=== PATIENT | male | born 1980 | race Hispanic/Latino ===

== ENCOUNTER 2022-09-15 08:14 | Day surgery (SDC) | payer OTHER ==
[2022-09-14 13:01] VITALS: BMI 32.1
[~2022-09-15 08:14] MED LIST: EPINEPHrine 0.3 MG in Ophthalmic Irrigation Solution 500 ML IRR SCH; Midazolam HCl 2 mg/2 ml Vial ONE; fentaNYL 50 mcg/mL 1 mL Vial ONE
[2022-09-15] MEDS ORDERED: PHENYLephrine 2.5% Ophth Soln 15 ml Bottle ONE (08:37)
[2022-09-15] MEDS ORDERED: Cyclopentolate 0.5% Opth Drops 15 ML BOT ONE (08:37)
[2022-09-15] MEDS ORDERED: Lidocaine 4% PF 5 ML AMP ONE (10:00)
[2022-09-15] MEDS ORDERED: CEFAZOLIN 1 GM VIAL ONE (10:00)
[2022-09-15] MEDS ORDERED: Lidocaine 1% PF 5 ML VIAL ONE (10:00)
[2022-09-15] MEDS ORDERED: PROPOFOL 200 MG/20 ML VIAL ONE (10:00)
[2022-09-15] MEDS ORDERED: Maxitrol 0.1% Opth Oint 3.5 GM TUBE ONE (10:00)
[2022-09-15] MEDS ORDERED: Triamcinolone 40 MG/ML VIAL ONE (10:00)
[2022-09-15] MEDS ORDERED: Bupivacaine 0.75% 10 ML VIAL ONE (10:00)
== END 2022-09-15 12:00 | disposition home or self-care (01) ==
LOC: EDBD → SDC 08:14
PROVIDERS: ATTEND Ophthalmology Retina Specialist
PROC: 08N43ZZ Release Right Vitreous, Percutaneous Approach (ICD-10-PCS; principal; 2022-09-15)
DX: H33.021 Retinal detachment with multiple breaks, right eye (principal)
CPT/HCPCS: 67025; J0690; J2250; J2704; J3010; J3301; J3490